=== PATIENT | male | born 1985 | race Caucasian/White ===

== ENCOUNTER 2018-02-06 07:03 | Day surgery (SDC) | payer BC ==
[2018-02-06] MEDS ORDERED: Sodium Chloride 0.9% 10 ML Syringe FLUSH PRN (07:30)
[2018-02-06] MEDS ORDERED: Lactated Ringers 1,000 ML IV SCH (07:30)
[2018-02-06] MEDS ORDERED: Clindamycin in 0.9 % Sod Chlor 900 MG/50 ML BAG IV ONE (08:30)
[2018-02-06] MEDS ORDERED: cefOXitin 2 GM in Sodium Chloride 0.9% 100 ML IV ONE (09:00)
[2018-02-06] MEDS ORDERED: fentaNYL 100 MCG/2 ML SDV IV ONE (09:30)
[2018-02-06] MEDS ORDERED: Lactated Ringers 1,000 ML IV ONE (09:30)
[2018-02-06] MEDS ORDERED: Ondansetron 4 MG/2 ML SDV IVPUSH ONE (09:30)
[2018-02-06] MEDS ORDERED: Propofol 200 MG/20 ML SDV IV ONE (09:30)
[2018-02-06] MEDS ORDERED: Midazolam 1 MG/ML 2 ML SDV IV ONE (09:30)
[2018-02-06] MEDS ORDERED: Succinylcholine 200 MG/10 ML MDV IV ONE (09:30)
[2018-02-06] MEDS ORDERED: Dexamethasone 4 MG/ML 5 ML MDV IVPUSH ONE (09:30)
[2018-02-06] MEDS ORDERED: Rocuronium 100 MG/10 ML MDV IV ONE (09:30)
[2018-02-06] MEDS ORDERED: diphenhydrAMINE 50 MG/ML SDV IV ONE (09:30)
[2018-02-06] MEDS ORDERED: Ketorolac 30 MG/ML SDV IVPUSH ONE (09:30)
[2018-02-06] MEDS ORDERED: Bupivacaine 0.5% 30 ML SDV ONE (09:50)
[2018-02-06] MEDS ORDERED: Lidocaine 1% with EPINEPHrine 1:100,000 20 ML MDV ONE (09:50)
--- NOTE | 2018-02-06 10:14 | PCM.OPNOTE ---
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
[2018-02-06] MEDS ORDERED: Acetaminophen/HYDROcodone 325-5 MG Tab PO ONE (10:52)
--- NOTE | 2018-02-06 12:43 | OR ---
DATE OF OPERATION: 02/06/2018 SURGEON: Kodi Coffey MD PROCEDURES PERFORMED: Exam under anesthesia and fistulotomy. PREOPERATIVE DIAGNOSIS: Recurrent perianal abscesses. 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 INDICATIONS FOR PROCEDURE: This is a 32-year-old white male who has had a history of recurrent perianal abscesses requiring I and Ds. Because of this, he was offered and accepted an exam under anesthesia and fistulotomy. DESCRIPTION OF PROCEDURE: After an excellent general anesthetic was administered, the patient was placed in the prone dara-knife position, prepped and draped in the usual sterile manner. Careful examination of the anus circumferentially revealed no overt fistula tract. However, gently probing with a lacrimal duct probe, there was a superficial fistula tract that was identified that tracked down to the area of the abscess. This was opened up with cautery. The area was irrigated. Gel-Foam coated with bacitracin was then placed into the wound. The patient was taken to the Recovery in a good condition, tolerating the procedure well. /[id number] /CHAN
[2018-02-06 13:38] VITALS: BP 116/47
== END 2018-02-06 13:25 | disposition home or self-care (01) ==
LOC: FB.SDS 07:03
PROVIDERS: ATTEND Surgery
DX: K61.0 Anal abscess (principal); F32.9 Major depressive disorder, single episode, unspecified; H52.209 Unspecified astigmatism, unspecified eye; E66.9 Obesity, unspecified; Z68.32 Body mass index [BMI] 32.0-32.9, adult; Z79.899 Other long term (current) drug therapy; Z88.0 Allergy status to penicillin
CPT/HCPCS: A9270-GY; J0330; J1100; J1200; J1885; J2250; J2405; J2704; J3010; J3490; J7120

== ENCOUNTER 2021-08-03 12:10 | Emergency (ER) | payer BC ==
[2021-08-03] MEDS ORDERED: Dexamethasone 4 MG/ML SDV IVPUSH ONE (12:34)
[2021-08-03] MEDS ORDERED: Azithromycin 500 MG in Sodium Chloride 0.9% 250 ML IV ONE (12:35)
--- NOTE | 2021-08-03 12:42 | EDM.PDOC ---
ED HPI GENERAL MEDICAL PROBLEM - General Chief Complaint: Respiratory Problem Stated Complaint: COVID Time Seen by Provider: 08/03/21 12:25 Source of Information: Reports: Patient History Limitations: Reports: No Limitations - History of Present Illness INITIAL COMMENTS - FREE TEXT/NARRATIVE: pt was exposed over the weekend and on Friday him and fell unwell and screened for COVID : tested positive is dong well but pt has been gradually getting worse has diarrhea , cough and fever pt is not vaccinated Onset: Gradual Onset Date: 07/30/21 Duration: Getting Worse Location: Reports: Abdomen, Generalized Quality: Reports: Ache, Dull Severity: Moderate Improves with: Reports: None Worsens with: Reports: Eating Context: Reports: Sick Contact (unsure of source of contact) Associated Symptoms: Reports: Cough, Fever/Chills, Headaches, Malaise, Weakness Treatments SUBASSEMBLER: Reports: Acetaminophen (taking 500mg bid) Chest Pain Score (Numeric/FACES): 6 - Related Data Allergies Allergy/AdvReac Type Severity Reaction Status Date / Time amoxicillin Allergy Severe Anaphylactic Verified 02/06/18 07:30 Shock Penicillins Allergy Hives Verified 02/06/18 07:30 Home Meds: Home Meds PARoxetine HCl [Paxil] 40 mg PO DAILY 10/31/14 [History] Ascorbic Acid [Vitamin C] 1,000 mg PO DAILY #30 tablet 08/03/21 [Rx] Azithromycin [Zithromax] 500 mg PO DAILY #5 tab 08/03/21 [Rx] Zinc Acetate [Wilzin] 25 mg PO DAILY #30 capsule 08/03/21 [Rx] dexAMETHasone [Dexamethasone] 6 mg PO DAILY #10 tablet 08/03/21 [Rx] Past Medical History HEENT History: Reports: Impaired Vision Gastrointestinal History: Reports: GERD Other Gastrointestinal History: PERIANAL ABSCESSES X 2 Psychiatric History: Reports: Anxiety - Infectious Disease History Infectious Disease History: Reports: Chicken Pox - Past Surgical History Musculoskeletal Surgical History: Reports: Other (See Below) Other Musculoskeletal Surgeries/Procedures:: LEFT GREAT TOE SCREW Social & Family History - Caffeine Use Caffeine Use: Reports: Energy Drinks ED ROS GENERAL - Review of Systems Review Of Systems: See Below Constitutional: Reports: Fever, Chills, Malaise, Weakness HEENT: Reports: No Symptoms Respiratory: Reports: Cough. Denies: Shortness of Breath, Sputum Cardiovascular: Reports: No Symptoms Endocrine: Reports: Fatigue GI/Abdominal: Reports: Anorexia, Diarrhea, Decreased Appetite, Vomiting : Reports: No Symptoms Musculoskeletal: Reports: Muscle Pain Skin: Reports: No Symptoms Neurological: Reports: Dizziness, Headache Psychiatric: Reports: No Symptoms Hematologic/Lymphatic: Reports: No Symptoms Immunologic: Reports: No Symptoms ED EXAM, GENERAL - Physical Exam Exam: See Below Exam Limited By: No Limitations General Appearance: Alert, WD/WN, No Apparent Distress, Anxious Eye Exam: Bilateral Eye: EOMI Ears: Hearing Grossly Normal Ear Exam: Bilateral Ear: TM normal Nose: Clear Rhinorrhea Throat/Mouth: Normal Oropharynx Head: Atraumatic, Normocephalic Neck: Supple, Non-Tender Respiratory/Chest: Decreased Breath Sounds, Rales Cardiovascular: Regular Rate, Rhythm GI/Abdominal: Soft, Non-Tender, No Distention. No: Guarding, Rigid, Tender Back Exam: Full Range of Motion. No: CVA Tenderness (R), CVA Tenderness (L) Extremities: Non-Tender Neurological: Alert, Oriented, CN II-XII Intact Psychiatric: Anxious Skin Exam: Warm, Dry, Intact Lymphatic: No Adenopathy Course - Vital Signs Last Recorded V/S: Last Vital Signs Temp 38.0 C 08/03/21 14:24 Pulse 73 08/03/21 14:24 Resp 18 08/03/21 14:24 BP 123/73 08/03/21 14:24 Pulse Ox 93 L 08/03/21 14:24 - Orders/Labs/Meds Labs: Laboratory Tests 08/03/21 08/03/21 Range/Units 13:40 13:40 WBC 3.2 (3.2-10.1) x10-3/uL RBC 5.48 (3.90-5.90) x10(6)uL Hgb 16.6 (12.9-17.7) g/dL Hct 48.1 (38.3-50.1) % MCV 87.8 (80.8-98.7) fL MCH 30.3 (27.0-33.3) pg MCHC 34.5 (28.7-35.3) g/dL RDW 13.1 (12.4-15.0) % Plt Count 108 L (117-477) x10(3)uL MPV 8.3 (6.7-11.0) fL Neut % (Auto) 67.3 (40.3-71.8) % Lymph % (Auto) 21.8 (15.8-45.3) % [place] % (Auto) 10.5 (5.5-15.2) % Eos % (Auto) 0.1 (0.1-6.8) % Baso % (Auto) 0.3 (0.3-3.8) % Neut # (Auto) 2.2 (1.7-6.9) x10-3/uL Lymph # (Auto) 0.7 (0.5-4.5) x10-3/uL [place] # (Auto) 0.3 (0.0-1.2) x10-3/uL Eos # (Auto) 0.0 (0.0-0.6) x10-3/uL Baso # (Auto) 0.0 (0.0-0.3) x10-3/uL D-Dimer, Quantitative 0.20 (0.0-0.59) mg/LFEU Meds: Medications Discontinued Medications Generic Name Dose Route Start Last Admin Trade Name Freq PRN Reason Stop Dose Admin Acetaminophen/Diphenhydramine HCl 2 tab 08/03/21 13:59 08/03/21 14:10 Acetaminophen/Diphenhydramine 500-25 Mg Tab PO 08/03/21 14:00 2 tab NOW STA Administration Dexamethasone 8 mg 08/03/21 12:34 08/03/21 12:44 Dexamethasone 4 Mg/Ml Sdv IVPUSH 08/03/21 12:35 8 mg ONETIME ONE Administration Azithromycin 500 mg/ Sodium 250 mls @ 250 mls/hr 08/03/21 12:35 08/03/21 12:44 Chloride IV 08/03/21 13:34 250 mls/hr ONETIME ONE Administration Sodium Chloride 1,000 mls @ 999 mls/hr 08/03/21 12:45 08/03/21 12:44 Normal Saline IV 999 mls/hr ASDIRECTED CINDY Administration - Re-Assessments/Exams Free Text/Narrative Re-Assessment/Exam: 08/03/21 12:42 BMI 31.78, age <65 and pt has no medical problems does not qualify for COVID antibody infusion 08/03/21 14:22 Cxray negative for pneumonia has been given decadron Fluids and tylenol will continue treatment at home Departure - Departure Time of Disposition: 15:03 Disposition: Home, Self-Care 01 Condition: Fair Clinical Impression: COVID-19 - Discharge Information *PRESCRIPTION DRUG MONITORING PROGRAM REVIEWED*: Not Applicable *COPY OF PRESCRIPTION DRUG MONITORING REPORT IN PATIENT NATALIE: Not Applicable Prescriptions: dexAMETHasone [Dexamethasone] 6 mg PO DAILY #10 tablet Ascorbic Acid [Vitamin C] 1,000 mg PO DAILY #30 tablet Zinc Acetate [Wilzin] 25 mg PO DAILY #30 capsule Azithromycin [Zithromax] 500 mg PO DAILY #5 tab Instructions: Prone Position Therapy, COVID-19 Vaccine Information, Symptoms of COVID-19 - [facility] (12/04/2020) Referrals: PCP,Unknown [Primary Care Provider] - Forms: ED Department Discharge Additional Instructions: Activity as tolerated Follow up with primary doctor is necessary Take medications as prescribed Quarantine for 10-14 days or until symptoms resolve Increase fluids Tylenol for pain/fever as needed Sepsis Event Note (ED) - Evaluation Sepsis Screening Result: No Definite Risk - Focused Exam Vital Signs: Vital Signs Temp Temp Pulse Resp BP Pulse Ox 08/03/21 14:24 38.0 C 73 18 123/73 93 L 08/03/21 14:10 38.0 C 08/03/21 12:17 36.8 C 111 H 20 137/81 95
[2021-08-03] MEDS ORDERED: Sodium Chloride 0.9% 1,000 ML IV SCH (12:45)
[2021-08-03] MEDS ORDERED: Acetaminophen/Diphenhydramine 500-25 MG Tab PO STA (13:59)
[2021-08-03 14:25] VITALS: BP 123/73; PULSE 73
--- NOTE | 2021-08-03 15:45 | CR ---
INDICATION: COVID-19 positive diagnosed 07/30/21. CHEST, ONE VIEW: AP portable upright view of the chest 08/03/21 - no comparisons. The heart, mediastinum and bony thorax were unremarkable. A definite active infiltrate or effusion was not identified. IMPRESSION: No definite active disease. Report was called to Dr. Amanda MIRAMONTES
== END 2021-08-03 15:03 | disposition home or self-care (01) ==
LOC: FB.ED 12:10
DX: U07.1 COVID-19 (principal); Z88.0 Allergy status to penicillin; Z79.899 Other long term (current) drug therapy
CPT/HCPCS: 36415; 71045; 85025; 85379; 96365; 96375; 99284; A9270; J0456; J1100; J7030; J7050